=== PATIENT | male | born 1985 | race Caucasian/White ===

== ENCOUNTER 2022-08-30 16:35 | Outpatient (CLI) | payer MEDICAID, SELFPAY ==
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
== END 2022-08-30 16:55 ==
PROVIDERS: Visit Provider Physician Assistant Medical
DX: V89.2XXA Person injured in unspecified motor-vehicle accident, traffic, initial encounter (principal); M25.511 Pain in right shoulder
CPT/HCPCS: 73030

== ENCOUNTER 2022-09-02 15:48 | Outpatient (CLI) | payer MEDICAID, SELFPAY ==
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
== END 2022-09-02 16:08 ==
PROVIDERS: Visit Provider Physician Assistant Medical
DX: M50.322 Other cervical disc degeneration at C5-C6 level (principal); M50.323 Other cervical disc degeneration at C6-C7 level
CPT/HCPCS: 72050

== ENCOUNTER 2022-09-07 20:30 | Emergency (ER) | payer MEDICAID, SELFPAY ==
[2022-09-07 20:35] VITALS: BP 151/89; PULSE 78; RESP 18; O2SAT 100
--- NOTE | 2022-09-07 20:43 | W.ED.GENAD ---
Discharge Plan Disposition Patient Disposition: Home Condition: Good Discharge Details Clinical Impression: Pain, dental Primary Care Provider: Unknown,Unknown ED Provider: Eddie Pierre Home Meds and New Rx's Prescriptions: New amoxicillin-pot clavulanate 875-125 mg tablet 1 tab PO BID 7 Days Qty: 14 0RF No Action gabapentin 100 mg Capsule 100 mg PO TID Discharge Instructions Instructions: Toothache (ED) Additional Instructions: Please take 800 mg of ibuprofen every 6 hours and 1000 mg of Tylenol every 6 hours to help with the inflammation and pain. These are the maximum doses. Please take the antibiotic as directed to help with the infection in your tooth. Please use the dental list that we have provided to contact the dentist for prompt follow-up and evaluation for tooth removal. If you notice any worsening of your symptoms, or any new symptoms such as difficulty swallowing, difficulty breathing, vomiting, diarrhea, fever, chills, shortness of breath, chest pain, numbness, weakness, or fainting , please return immediately to the emergency department for reevaluation. Please follow up with your primary care provider as soon as possible for reassessment and reevaluation. As always, it was a pleasure participating in your medical care today. Medical Decision Making 36-year-old male who denies any significant past medical history presents today for evaluation of dental pain. Patient states that for the last month or 2 has been dealing with right upper and right lower molar dental pain. He has known dental caries but has not seen dentist. He states that his girlfriend just set him up with a dentist today. He states that occasionally he will have a headache from this pain dental pain, but does not have any headache currently. He does admit to intermittent chills but denies any chills or fever currently. He denies IV drug use. He has been taking Aleve and Tylenol but this is only slightly improved the pain. No other complaints at this time. No other modifying factors. Physical exam demonstrates evidence of notable dental caries throughout, particularly in the right upper and right lower molars posteriorly. No evidence of periapical abscess, Ludewig's angina or other abnormality. Suspect pulpitis secondary to the notable caries. No evidence of periapical abscess needs incision and drainage. No other significant abnormality otherwise. No temporal tenderness, no nuchal rigidity to suggest meningitis. No evidence of cardiac murmur. Patient otherwise looks well. Patient has refused dental block after he was offered. We will give Augmentin for home use, shot of Toradol here, recommendations for continued NSAIDs and close follow-up with dentist. I have extensively reviewed the treatment plan and discharge instructions with the patient. I have addressed all patient concerns at this time. The patient was made aware of what symptoms to monitor for that would warrant a return to the emergency department. Discussed the plan with the patient, they demonstrate verbal understanding and agreement with our assessment and plan at this time. The documentation in this chart was dictated using [employer] dictation software. Please excuse any dictation errors. HPI General Date/Time Provider Initiated Documentation: 09/07/22 20:32. HPI Narrative: 36-year-old male who denies any significant past medical history presents today for evaluation of dental pain. Patient states that for the last month or 2 has been dealing with right upper and right lower molar dental pain. He has known dental caries but has not seen dentist. He states that his girlfriend just set him up with a dentist today. He states that occasionally he will have a headache from this pain dental pain, but does not have any headache currently. He does admit to intermittent chills but denies any chills or fever currently. He denies IV drug use. He has been taking Aleve and Tylenol but this is only slightly improved the pain. No other complaints at this time. No other modifying factors. Related Data Home Medications Medication Instructions Recorded Confirmed amoxicillin 875 mg-potassium 1 tab PO BID 7 days #14 tabs 09/07/22 clavulanate 125 mg tablet gabapentin 100 mg capsule 100 mg PO TID 09/07/22 09/07/22 Previous Rx's Medication Instructions Recorded amoxicillin 875 mg-potassium 1 tab PO BID 7 days #14 tabs 09/07/22 clavulanate 125 mg tablet Allergies Allergy/AdvReac Type Severity Reaction Status Date / Time No Known Allergies Allergy Unverified 09/07/22 20:40 General Stated Complaint: DentalOral NELIA: 3 Review of Systems All systems reviewed & are unremarkable except as noted in HPI and below PFSH All Active Problems Pain, dental (Acute) Social History (Reviewed 09/07/22 @ 20:56 by RENETTA Schafer Smoking/Tobacco Use Status: Current every day Tobacco Type: cigarettes Smoking risk assessment performed?: Yes Drug use: Never Substance use type: does not use Housing: house Do you feel safe at home: Yes Do you feel safe in your relationship?: Yes Exam Narrative Exam Narrative: 1.Const: Well-nourished, Well-developed, appearing stated age 2.Eyes: PERRL, no conjunctival injection, and symmetrical lids. 3.ENT: Atraumatic external nose and ears. Moist MM. Neck: Symmetric, trachea midline, No thyromegaly. Severe dental caries. Notable dental caries particularly in the right upper and right lower molars. No periapical abscess or swelling. No evidence of airway compromise. No evidence of Ludewig's angina 4.CVS: +S1/S2, No murmurs or gallops. Peripheral pulses 2+ and equal in all extremities. Brisk capillary refill in all extremities. 5.RESP: Unlabored respiratory effort. Clear to auscultation bilaterally. No wheezes rales or rhonchi 6.GI: Soft, Nontender/Nondistended, No hepatosplenomegaly. No guarding or rebound. 7.MSK: Normocephalic/Atraumatic, Extremities w/o deformity or ttp No cyanosis or clubbing, Normal movement of all extremities 8.Skin: Warm, Dry. No rashes or lesions. 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 Sensation grossly intact, no focal neurologic deficits. 10.Psych: (AAO) x3. Appropriate mood and affect Course Vital Signs Vital signs: Vital Signs Pulse 78 09/07/22 20:35 Respiratory Rate 18 09/07/22 20:35 Blood Pressure 151/89 H 09/07/22 20:35 Pulse Oximetry 100 09/07/22 20:35 Pulse 78 09/07/22 20:35 Respiratory Rate 18 09/07/22 20:35 Blood Pressure 151/89 H 09/07/22 20:35 Pulse Oximetry 100 09/07/22 20:35 Oxygen Delivery Method Room Air 09/07/22 20:35 Oxygen Flow Rate 0 09/07/22 20:35
[2022-09-07] MEDS: Ketorolac 30 MG/ML VIAL IVP (20:51)
[2022-09-07] MEDS: Amox. 875/Clav. 125, 2 TABS/BTL 1 TAB PO (20:51)
== END 2022-09-07 21:00 | disposition home or self-care (01) ==
PROVIDERS: Emergency Provider Student in an Organized Health Care Education/Training Program
DX: K08.89 Other specified disorders of teeth and supporting structures (principal); R51.9 Headache, unspecified; F17.210 Nicotine dependence, cigarettes, uncomplicated
CPT/HCPCS: 96374; 99284; 99282; J1885

== ENCOUNTER → 2022-11-11 01:26 | Outpatient (CLI) | payer MEDICAID, SELFPAY ==
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
== END ==
PROVIDERS: PCP Family Medicine; Visit Provider Student in an Organized Health Care Education/Training Program
DX: S46.011A Strain of muscle(s) and tendon(s) of the rotator cuff of right shoulder, initial encounter (principal); X58.XXXA Exposure to other specified factors, initial encounter
CPT/HCPCS: 73221

== ENCOUNTER 2023-04-29 08:50 | Outpatient (CLI) | payer MEDICAID, SELFPAY ==
--- NOTE | 2023-04-29 08:45 | RT.EKG_ITS ---
APPROVED REPORT Exam: Resting ECG Reason for Exam: High Risk Medication Patient Location: O HR:113 bpm ECG Measurements Heart Rate 113 AXIS LA 147 P 82 QRSd 112 QRS 108 QT 348 T -21 QTc 478 Conclusion Sinus tachycardia...rate> 99 Right atrial enlargement...P>0.25mV 2 lds or<-0.24mV aVR/aVL Consider left ventricular hypertrophy...(R aVL+S V3) >2.80mV Borderline T abnormalities, inferior leads...T flat/neg, II III aVF ST elevation, consider anterior injury...ST >0.15mV, V1-V5 Borderline prolonged QT interval...QTc >475mS Baseline wander in lead(s) V2,V4
== END 2023-04-29 08:51 | disposition home or self-care (01) ==
PROVIDERS: PCP Family Medicine; Visit Provider Family Medicine
DX: Z79.899 Other long term (current) drug therapy (principal)
CPT/HCPCS: 93005; 93010